=== PATIENT | male | born 1955 | race Caucasian/White ===

== ENCOUNTER 2016-09-23 19:31 | Emergency (ER) | payer MEDICARE ==
[~2016-09-23] VITALS: Ht 182.9 cm; Wt 51.0 kg
[~2016-09-23 19:31] MED LIST: DAPT500P IV; FOLI1 PO; LORTA5 PO; RIFA150 PO; TAB-TAB PO; THIA100T PO
[2016-09-23 19:33] VITALS: BP 193/88; PULSE 69; RESP 18; TEMP 98.1; O2SAT 100
--- NOTE | 2016-09-23 19:52 | PD ---
HPI Chief Complaint: Respiratory Symptoms Time Seen by Provider: 19:39 Travel History International Travel<30 days: No Contact w/Intl Traveler<30days: No Traveled to known affect area: No History of Present Illness HPI The patient is 61. He arrives by EMS due to shortness of breath for one day. He does not use oxygen at home. He smokes one pack of cigarettes per day. He has an albuterol inhaler that he uses which typically staves off his COPD exacerbation. He reports waking up this morning with a frequent cough productive of phlegm. Posttussive emesis reported. He has had no fever. He reports mild chest pain which he attributes to coughing. He ran out of his albuterol inhaler day ago. The patient lives in a private residence with a a few roommates and one qm consultant. PMC includes COPD, CAD, SZs, COPD, HTN, tobaccoism, alcoholism. EMS gave 1 albuterol treatment en route and reports some improvement. They were unable to establish IV access. PFSH Past Medical History Arthritis: Yes Asthma: No Autoimmune Disease: No Blood Disorders: No Anxiety: Yes Depression: Yes Heart Rhythm Problems: Yes (A FIB ) Cancer: No Cardiovascular Problems: Yes High Cholesterol: No Chemotherapy: No Chest Pain: Yes ([place] 2013) Congestive Heart Failure: No Cirrhosis: Yes COPD: Yes Diabetes: No Diminished Hearing: Yes (BILAT ) Endocrine: No Gastrointestinal Disorders: Yes GERD: Yes Genitourinary: No Hypertension: Yes Immune Disorder: No Implanted Vascular Access Dvce: Yes Musculoskeletal: Yes Neurologic: Yes (head trauma) Psychiatric: Yes Reproductive: No Respiratory: Yes Myocardial Infarction: Yes (NSTEMI MAR 2014) Radiation Therapy: No Seizures: Yes Sleep Apnea: No Thyroid Disease: No Past Surgical History Body Medical Devices: PINS IN LEG Pacemaker: No Other Surgery: Yes (left hip replacement) Social History Alcohol Use: Yes (4 beers a day) Tobacco Use: Yes (1PPD/DAY) Substance Use: No Allergies-Medications (Allergen,Severity, Reaction): Coded Allergies: *MDRO Multi-Drug Resistant Organism (Verified Adverse Reaction, Unknown, ) 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 Reported Diltiazem ER 24 HR 240 Mg Matt 240 Mg PO DAILY Amiodarone (Amiodarone HCl) 200 Mg Tab 200 Mg PO DAILY Review of Systems Except as stated in HPI: all other systems reviewed are Neg General / Constitutional: No: Fever, Chills Respiratory: Positive: Cough, Shortness of Breath, Wheezing Physical Exam Narrative GENERAL: 61-year-old male, cachexia, speaking short sentences SKIN: Warm and dry. HEAD: Atraumatic. Normocephalic. EYES: Pupils equal and round. No scleral icterus. No injection or drainage. ENT: No nasal bleeding or discharge. Mucous membranes pink and moist. NECK: Trachea midline. No JVD. CARDIOVASCULAR: Regular rate and rhythm. No murmur appreciated. RESPIRATORY: Wheezing present bilaterally. Minimal dyspnea/accessory muscle use. GASTROINTESTINAL: Abdomen soft, non-tender, nondistended. Hepatic and splenic margins not palpable. MUSCULOSKELETAL: No obvious deformities. No clubbing. No cyanosis. No edema. NEUROLOGICAL: Awake and alert. No obvious cranial nerve deficits. Motor grossly within normal limits. Normal speech. PSYCHIATRIC: Appropriate mood and affect; insight and judgment normal. Data Data Last Documented VS Vital Signs Date Time Temp Pulse Resp B/P Pulse Ox O2 Delivery O2 Flow Rate FiO2 09/23/16 21:07 22 09/23/16 21:05 96 Nasal Cannula 2 09/23/16 21:03 72 124/58 09/23/16 19:33 98.1 VS reviewed Orders Complete Blood Count With Diff (09/23/16 19:46) Basic Metabolic Panel (Bmp) (09/23/16 19:46) Ckmb (Isoenzyme) Profile (09/23/16 19:46) Troponin I (09/23/16 19:46) Influenzae A/B Antigen (09/23/16 19:46) Blood Culture (09/23/16 19:46) Iv Access Insert/Monitor (09/23/16 19:46) Electrocardiogram (09/23/16 19:46) Ecg Monitoring (09/23/16 19:46) Oximetry (09/23/16 19:46) Oxygen Administration (09/23/16 19:46) Chest, Single Ap (09/23/16 19:46) Sodium Chloride 0.9% Flush (Ns Flush) (09/23/16 20:00) Methylprednisolone So Succ Inj (Solumedr (09/23/16 20:00) Albuterol-Ipratropium Neb (Duoneb Neb) (09/23/16 20:00) Sodium Chlor 0.9% 1000 Ml Inj (Ns 1000 M (09/23/16 20:00) Alcohol (Ethanol) (09/23/16 19:52) CKMB (09/23/16 20:40) CKMB% (09/23/16 20:40) Albuterol Hfa Inh (Proair Hfa Inh) (09/23/16 22:45) Labs Laboratory Tests Test 09/23/16 20:40 White Blood Count 11.0 TH/MM3 Red Blood Count 5.23 MIL/MM3 Hemoglobin 14.4 GM/DL Hematocrit 43.2 % Mean Corpuscular Volume 82.6 FL Mean Corpuscular Hemoglobin 27.6 PG Mean Corpuscular Hemoglobin 33.4 % Concent Red Cell Distribution Width 18.1 % Platelet Count 374 TH/MM3 Mean Platelet Volume 7.5 FL Neutrophils (%) (Auto) 60.9 % Lymphocytes (%) (Auto) 27.4 % Monocytes (%) (Auto) 5.9 % Eosinophils (%) (Auto) 5.0 % Basophils (%) (Auto) 0.8 % Neutrophils # (Auto) 6.7 TH/MM3 Lymphocytes # (Auto) 3.0 TH/MM3 Monocytes # (Auto) 0.6 TH/MM3 Eosinophils # (Auto) 0.5 TH/MM3 Basophils # (Auto) 0.1 TH/MM3 CBC Comment DIFF FINAL Differential Comment Sodium Level 126 MEQ/L Potassium Level 4.5 MEQ/L Chloride Level 88 MEQ/L Carbon Dioxide Level 25.6 MEQ/L Anion Gap 12 MEQ/L Blood Urea Nitrogen 5 MG/DL Creatinine 0.58 MG/DL Estimat Glomerular Filtration 142 ML/MIN Rate Random Glucose 70 MG/DL Calcium Level 8.8 MG/DL Total Creatine Kinase 117 U/L Creatine Kinase MB 2.2 NG/ML Troponin I LESS THAN 0.02 NG/ML Ethyl Alcohol Level 83 MG/DL MDM Medical Decision Making Medical Screen Exam Complete: Yes Emergency Medical Condition: Yes Medical Record Reviewed: Yes Differential Diagnosis COPD, pneumonia, anemia, renal failure, electrolyte imbalance Narrative Course CBC & BMP Diagram 09/23/16 20:40 EtOH 83 Last 24 hours Impressions Chest X-Ray 09/23/161945 Signed Impressions: Service Date/Time: Friday, September 23, 2016 20:32 - CONCLUSION: No acute cardiopulmonary disease. Fabrice Whitaker MD Patient received 3 rounds of DuoNeb as well as Solu-Medrol. Patient also received an albuterol inhaler here. We'll send him home with prednisone and azithromycin. His O2 sat has remained normal throughout the ER stay. He has had some coughing episodes severe at times. PT has follow up with Dr Oconnor as needed. Diagnosis Primary Impression: COPD (chronic obstructive pulmonary disease) Qualified Code: J43.9 - Pulmonary emphysema, unspecified emphysema type Additional Impression: Cough Additional Instructions: You have a choice when it comes to health care, and we are glad that you chose [facility]. Hopefully, we have met your expectations on today's visit. You are welcome to return to [facility] at any time, as we are committed to meeting the health care needs of our community. Med/Other Pt SpecificInfo: Prescription(s) given Scripts Prednisone 20 Mg Tab40 Mg PO DAILY 4 Days Ref 0 Take 40 mg (2 tablets) daily for 5 days Prov:Michele Curtis MD 09/23/16 Azithromycin 250 Mg [id number] Mg PO DIRECTED #6 TAB Ref 0 Take 2 tabs (500 mg) on day 1 then 1 tab daily x 4 days. Prov:Michele Curtis MD 09/23/16 Disposition: 01 DISCHARGE HOME Condition: Stable Micehle Curtis MD Sep 23, 2016 19:52
[2016-09-23 20:00] VITALS: O2SAT 100
[2016-09-23] MEDS ORDERED: methylPREDNISolone SOD SUCC 125 MG/2 ML VIAL IVP ONE (20:00)
[2016-09-23] MEDS ORDERED: SODIUM CHLORIDE 0.9% FLUSH 10 ML FLUSH IVF PRN (20:00)
[2016-09-23] MEDS ORDERED: SODIUM CHLOR 0.9% 1000 ML INJ 1,000 ML IV ONE (20:00)
[2016-09-23] MEDS: RESP: ALBUTEROL 2.5 MG/IPRATROPIUM 0.5 MG NEB (SCH) INH ×2 (20:09→20:10)
[2016-09-23 21:03] VITALS: BP 124/58; PULSE 72; RESP 22; O2SAT 96
[2016-09-23 21:07] VITALS: RESP 22
[2016-09-23] MEDS ORDERED: DILT1TAB4 PO (21:11)
[2016-09-23] MEDS ORDERED: AMIO200T PO (21:11)
[2016-09-23 21:21] LABS: AUTOMATED NEUTROPHIL # 6.7 TH/MM3 (1.8-7.7); BASOPHIL # 0.1 TH/MM3 (0-0.2); BASOPHIL % 0.8 % (0.0-2.0); EOSINOPHIL # 0.5 TH/MM3 (0-0.4); HEMATOCRIT 43.2 % (39.0-51.0); HEMO FLAGS DIFF FINAL; LYMPH % 27.4 % (9.0-44.0); MEAN CELL VOLUME 82.6 FL (80.0-100.0); MEAN CORPUSCULAR HEMOGLOBIN 27.6 PG (27.0-34.0); MEAN CORPUSCULAR HGB CONC 33.4 % (32.0-36.0); MONO % 5.9 % (0.0-8.0); NEUT % 60.9 % (16.0-70.0); PLATELET COUNT 374 TH/MM3 (150-450); RED BLOOD COUNT 5.23 MIL/MM3 (4.50-5.90); RED CELL DISTRIBUTION WIDTH 18.1 % (11.6-17.2)
[2016-09-23 21:45] LABS: ANION GAP 12 MEQ/L (5-15); BICARBONATE 25.6 MEQ/L (21.0-32.0); BLOOD UREA NITROGEN 5 MG/DL (7-18); CHLORIDE 88 MEQ/L (98-107); GLOMERULAR FILTRATION RATE 142 ML/MIN (>89); POTASSIUM 4.5 MEQ/L (3.5-5.1); SODIUM (NA) 126 MEQ/L (136-145)
[2016-09-23 21:49] LABS: CREATINE KINASE 117 U/L (39-308)
--- NOTE | 2016-09-23 21:51 | RADRPT ---
EXAM DATE/TIME: 09/23/2016 20:32 [facility] COMPARISON: CHEST SINGLE AP, April 21, 2016, 17:04. INDICATIONS : Cough. MEDICAL HISTORY : Sepsis. SURGICAL HISTORY : None. ENCOUNTER: Initial ACUITY: 1 day PAIN SCORE: 0/10 LOCATION: Bilateral chest FINDINGS: The lungs are clear without infiltrate, nodule, or mass. There is no appreciable pleural effusion fo r technique. Heart and mediastinum are unremarkable. There are old healed rib fractures bilaterally. CONCLUSION: No acute cardiopulmonary disease. Fabrice Whitaker MD on September 23, 2016 at 21:48 Board Certified Radiologist. This report was verified electronically.
[2016-09-23 22:07] LABS: CKMB 2.2 NG/ML (0.5-3.6)
[2016-09-23] MEDS ORDERED: AZIT250T3 PO (22:35)
[2016-09-23] MEDS ORDERED: PRED20 PO (22:35)
[2016-09-23] MEDS ORDERED: ALBUTEROL SULFATE 90 MCG/ACT HFA 8 GM INHALER INH ONE (22:45)
--- NOTE | 2016-09-24 09:45 | EKG ---
Date Performed: 09/23/2016 Time Performed: 21:12:51 PTAGE: 61 years EKG: Sinus rhythm LEFT ANTERIOR FASCICULAR BLOCK ABNORMAL ECG PREVIOUS TRACING : 12/04/2015 21.14 DOCTOR: Juan Daniel Estrada Interpretating Date/Time 09/24/2016 09:44:44
== END 2016-09-24 00:45 | disposition home or self-care (01) ==
LOC: NEPC 19:31
DX: J44.9 Chronic obstructive pulmonary disease, unspecified (principal); I44.4 Left anterior fascicular block; F17.210 Nicotine dependence, cigarettes, uncomplicated; I48.91 Unspecified atrial fibrillation; I25.2 Old myocardial infarction; I10 Essential (primary) hypertension; K21.9 Gastro-esophageal reflux disease without esophagitis; I25.10 Atherosclerotic heart disease of native coronary artery without angina pectoris
CPT/HCPCS: 71010; 80048; 80307; 82550; 82552; 84484; 85025; 87040; 87804; 93005; 94640; 94664; 96361; 96374; 99285; J2930; J7030

== ENCOUNTER → 2017-06-16 | Outpatient (CLI) | payer MEDICARE ==
[~2017-06-16] MED LIST changes: +AMIO200T PO; +AZIT250T3 PO; -DAPT500P IV; +DILT1TAB4 PO; -FOLI1 PO; -LORTA5 PO; +PRED20 PO; -RIFA150 PO; -TAB-TAB PO; -THIA100T PO
[2017-06-16 08:45] LABS: BILIRUBIN, URINE NEG (NEG); BLOOD, URINE NEG (NEG); GLUCOSE,URINE NEG (NEG); KETONE, URINE NEG (NEG); MUCUS URINE FEW /lpf (OCC); NITRITE,URINE NEG (NEG); URINE COLOR YELLOW (YELLW/STRAW); URINE LEUKOCYTE ESTERASE SMALL (NEG)
[2017-06-16 08:45] LABS: AUTOMATED NEUTROPHIL # 4.5 TH/MM3 (1.8-7.7); BASOPHIL # 0.1 TH/MM3 (0-0.2); BASOPHIL % 0.7 % (0.0-2.0); EOSINOPHIL # 0.7 TH/MM3 (0-0.4); EOSINOPHIL % 8.6 % (0.0-4.0); HEMATOCRIT 47.6 % (39.0-51.0); LYMPH % 25.6 % (9.0-44.0); MEAN CELL VOLUME 88.4 FL (80.0-100.0); MEAN CORPUSCULAR HEMOGLOBIN 29.8 PG (27.0-34.0); MEAN CORPUSCULAR HGB CONC 33.7 % (32.0-36.0); MEAN PLATELET VOLUME 7.6 FL (7.0-11.0); MONO % 7.4 % (0.0-8.0); MONOCYTE # 0.6 TH/MM3 (0-0.9); NEUT % 57.7 % (16.0-70.0); PLATELET COUNT 246 TH/MM3 (150-450); RED BLOOD COUNT 5.38 MIL/MM3 (4.50-5.90); RED CELL DISTRIBUTION WIDTH 14.9 % (11.6-17.2); WHITE BLOOD COUNT 7.8 TH/MM3 (4.0-11.0)
[2017-06-16 09:06] LABS: CHOLESTEROL 140 MG/DL (120-200); TRIGLYCERIDES 96 MG/DL (42-150)
[2017-06-16 09:17] LABS: ALKALINE PHOSPHATASE 80 U/L (45-117); ALT (GPT) 15 U/L (12-78); CHOLESTEROL/ HDL RATIO 2.59 RATIO; LDL CHOLESTEROL 67 MG/DL (0-99); TOTAL BILIRUBIN ADULT 0.6 MG/DL (0.2-1.0); TOTAL PROTEIN 7.9 GM/DL (6.4-8.2)
[2017-06-16 09:19] LABS: AST (GOT) 17 U/L (15-37); BICARBONATE 27.6 MEQ/L (21.0-32.0); BLOOD UREA NITROGEN 12 MG/DL (7-18); CHLORIDE 101 MEQ/L (98-107); GLOMERULAR FILTRATION RATE 136 ML/MIN (>89); GLUCOSE,FASTING 76 MG/DL (74-99); SODIUM (NA) 136 MEQ/L (136-145)
== END ==
LOC: CLAB 07:51
DX: J44.9 Chronic obstructive pulmonary disease, unspecified (principal); R74.0 Nonspecific elevation of levels of transaminase and lactic acid dehydrogenase [LDH]; I48.91 Unspecified atrial fibrillation
CPT/HCPCS: 36415; 80053; 80061; 81001; 84153; 84443; 85025